=== PATIENT | male | born 1945 | race African-American/Black ===

== ENCOUNTER 2018-08-09 21:20 | Emergency (ER) | payer MEDICARE ==
[2018-08-09 22:14] LABS: BUN/Creatinine Ratio 9; Blood Urea Nitrogen 6 mg/dL (9-20); Calcium 9.2 mg/dL (8.4-10.2); Hemolysis Index 86
[2018-08-09 22:31] LABS: Hematocrit 50.3 % (35.5-45.6); Hemoglobin 17.3 gm/dl (11.8-15.2); Mean Corpuscular HGB Conc 34 % (32-34); Mean Corpuscular Hemoglobin 33 pg (28-32); Mean Corpuscular Volume 95 fl (84-94); Platelet Count 265 K/mm3 (140-440); Red Blood Count 5.29 M/mm3 (3.65-5.03); Red Cell Distribution Width 13.8 % (13.2-15.2)
--- NOTE | 2018-08-09 23:14 | XRay Report ---
FINAL REPORT PROCEDURE: XR CHEST ROUTINE 2V TECHNIQUE: PA and lateral chest radiographs were obtained. CPT 73795 HISTORY: Shortness of breath COMPARISON: No prior studies are available for comparison. FINDINGS: Heart: Normal. Mediastinum/Vessels: Normal. Lungs/Pleural space: Normal. Bony thorax: No acute osseous abnormality. Other: IMPRESSION: Normal examination.
[2018-08-10] MEDS ORDERED: SOLU-Medrol IV ONE (00:57)
[2018-08-10] MEDS ORDERED: PROVENTIL IH ONE (00:57)
[2018-08-10] MEDS ORDERED: MAGNESIUM SULFATE 2GM/50ML 2 GM/50 ML BAG IV ONE (00:57)
[2018-08-10] MEDS ORDERED: ZITHROMAX PO ONE (00:57)
[2018-08-10] MEDS ORDERED: ATROVENT IH ONE (00:57)
[2018-08-10 02:29] VITALS: BP 151/86
--- NOTE | 2018-08-10 02:32 | Emergency Department Report ---
ED Shortness of Breath HPI - General Chief Complaint: Dyspnea/Respdistress Stated Complaint: WILLIAN Time Seen by Provider: 08/10/18 00:53 Source: patient Mode of arrival: Ambulatory Limitations: Language Barrier - History of Present Illness Initial Comments: 72-year-old male no symptoms and past medical history presents to the hospital complaining of cough, wheezing, shortness of breath since yesterday. Positive moderate chest tightness. No complaints of fever or recent travel. Patient smokes cigarettes. - Related Data Previous Rx's Medication Instructions Recorded Last Taken Type Albuterol Sulfate [Ventolin HFA] 2 puff IH Q4H PRN #1 hfa.aer.ad 08/10/18 Unknown Rx Azithromycin [Zithromax Z-CELIA] 1 dose PO DAILY 5 Days tab 08/10/18 Unknown Rx Benzonatate [Tessalon Perles] 100 mg PO Q8HR PRN #20 capsule 08/10/18 Unknown Rx predniSONE [Deltasone] 40 mg PO QDAY 5 Days tab 08/10/18 Unknown Rx Allergies Allergy/AdvReac Type Severity Reaction Status Date / Time No Known Allergies Allergy Verified 08/10/18 01:08 ED Review of Systems ROS: Stated complaint: WILLIAN Other details as noted in HPI Comment: All other systems reviewed and negative ED Past Medical Hx - Past Medical History Previous Medical History?: No - Surgical History Past Surgical History?: No - Social History Smoking Status: Current Every Day Smoker Substance Use Type: None - Medications Home Medications: Home Medications Medication Instructions Recorded Confirmed Last Taken Type Albuterol Sulfate [Ventolin HFA] 2 puff IH Q4H PRN #1 hfa.aer.ad 08/10/18 Unknown Rx Azithromycin [Zithromax Z-CELIA] 1 dose PO DAILY 5 Days tab 08/10/18 Unknown Rx Benzonatate [Tessalon Perles] 100 mg PO Q8HR PRN #20 capsule 08/10/18 Unknown Rx predniSONE [Deltasone] 40 mg PO QDAY 5 Days tab 08/10/18 Unknown Rx ED Physical Exam - General Limitations: No Limitations - Other Other exam information: General: No limitations, patient is alert in no acute distress Head exam: Atraumatic, normocephalic Eyes exam: Normal appearance ENT: Moist mucous membrane, normal oropharynx Neck exam: Normal inspection, full range of motion, no meningismus nontender Respiratory exam: Bilateral mild expiratory wheezing without rales or crackles. No respiratory distress with tachypnea Cardiovascular: Normal rate and rhythm, normal heart sounds Abdomen: Soft, nondistended, and nontender, with normal bowel sounds, no rebound, or guarding Extremity: Full range of motion normal inspection no deformity, no calf tenderness or edema Back: Normal Inspection, full range of motion, no tenderness Neurologic: Alert, oriented x3, cranial nerves intact, no motor or sensory deficit Psychiatric: normal affect, normal mood Skin: Warm, dry, intact ED Course Vital Signs 08/09/18 08/09/18 08/10/18 21:25 21:27 00:24 Temperature 97.7 F 97.7 F Pulse Rate 87 86 59 L Pulse Rate [ Right Lower Lobe] Respiratory 18 24 13 Rate Respiratory Rate [Right Lower Lobe] Blood Pressure 168/91 168/91 O2 Sat by Pulse 94 94 Oximetry 08/10/18 08/10/18 08/10/18 00:30 00:45 01:00 Temperature Pulse Rate 61 63 64 Pulse Rate [ Right Lower Lobe] Respiratory 17 17 20 Rate Respiratory Rate [Right Lower Lobe] Blood Pressure 152/89 152/89 141/86 O2 Sat by Pulse Oximetry 08/10/18 08/10/18 08/10/18 01:15 01:22 01:30 Temperature Pulse Rate 61 64 Pulse Rate [ 82 Right Lower Lobe] Respiratory 17 18 Rate Respiratory 18 Rate [Right Lower Lobe] Blood Pressure 141/86 159/90 O2 Sat by Pulse Oximetry ED Medical Decision Making - Lab Data Result diagrams: 08/09/18 21:48 08/09/18 21:48 Lab Results 08/09/18 08/09/18 Range/Units 21:48 21:48 WBC 5.5 (4.5-11.0) K/mm3 RBC 5.29 H (3.65-5.03) M/mm3 Hgb 17.3 H (11.8-15.2) gm/dl Hct 50.3 H (35.5-45.6) % MCV 95 H (84-94) fl MCH 33 H (28-32) pg MCHC 34 (32-34) % RDW 13.8 (13.2-15.2) % Plt Count 265 (140-440) K/mm3 Seg Neutrophils % Nurse Aide Sodium 138 (137-145) mmol/L Potassium 4.3 (3.6-5.0) mmol/L Chloride 98.3 (98-107) mmol/L Carbon Dioxide 30 (22-30) mmol/L Anion Gap 14 mmol/L BUN 6 L (9-20) mg/dL Creatinine 0.7 L (0.8-1.5) mg/dL Estimated GFR > 60 ml/min BUN/Creatinine Ratio 9 % Glucose 168 H (75-100) mg/dL Calcium 9.2 (8.4-10.2) mg/dL Troponin T < 0.010 (0.00-0.029) ng/mL - EKG Data -: EKG Interpreted by Me EKG shows normal: sinus rhythm, axis (qrs 74), QRS complexes (qrsd 89), ST-T waves (no stemi/t inv) Rate: normal (80) - EKG Data When compared to previous EKG there are: previous EKG unavailable - Radiology Data Radiology results: report reviewed (cxr: naf) - Medical Decision Making Patient presents with new onset wheezing without previous episode of reactive airway disease ED received albuterol, Atrovent, Solu-Medrol, magnesium, and by mouth azithromycin with improvement Will be discharged on medications for acute bronchitis with informed follow-up is required to determine his further workup for COPD as needed Given a history of smoking - Differential Diagnosis pneumonia, bronchitis, COPD Critical Care Time: No Critical care attestation.: If time is entered above; I have spent that time in minutes in the direct care of this critically ill patient, excluding procedure time. ED Disposition Clinical Impression: Acute bronchitis, Smoker Disposition: DC-01 TO HOME OR SELFCARE Is pt being admited?: No Does the pt Need Aspirin: No Condition: Stable Instructions: Acute Bronchitis (ED), How to Stop Smoking (ED) Additional Instructions: Take the medication as prescribed. Follow up with your doctor or the doctor provided. Return if symptoms worsen as indicated by your discharge instructions Prescriptions: Albuterol Sulfate [Ventolin HFA] 2 puff IH Q4H PRN #1 hfa.aer.ad PRN Reason: Shortness Of Breath Azithromycin [Zithromax Z-CELIA] 1 dose PO DAILY 5 Days tab Benzonatate [Tessalon Perles] 100 mg PO Q8HR PRN #20 capsule PRN Reason: Cough predniSONE [Deltasone] 40 mg PO QDAY 5 Days tab Referrals: PRAVEEN LOVE MD [Primary Care Provider] - 3-5 Days Time of Disposition: 02:49
[2018-08-10 02:55] LABS: Basophils % (Manual) 0 % (0.0-1.8); Platelet Estimate Consistent w Auto; Total Cells Counted 100
== END 2018-08-10 03:25 | disposition home or self-care (01) ==
LOC: ED 21:20
DX: J20.9 Acute bronchitis, unspecified (principal); F17.210 Nicotine dependence, cigarettes, uncomplicated
CPT/HCPCS: 36415; 71046; 80048; 84484; 85007; 85025; 93005; 93010; 96365; 96375; 99284; J2930; J3475